=== PATIENT | female | born 1945 | race Caucasian/White ===

== ENCOUNTER 2016-11-16 18:28 | Emergency (ER) | payer OTHER, BC ==
[2016-11-16 18:34] VITALS: BP 159/83; PULSE 63; TEMP 98.5; BMI 34.5
--- NOTE | 2016-11-16 19:02 | PDOC ---
History of Present Illness - General Chief Complaint: Injury Stated Complaint: INJURY Time Seen by Provider: 11/16/16 18:39 History Source: Patient Exam Limitations: No Limitations - History of Present Illness Initial Comments: CHIEF COMPLAINT: 71 y/o afebrile female with PMH HTN, HLD, GERD c/o right wrist and left knee pain s/p trip and fall. HISTORY OF PRESENT ILLNESS: The patient tripped on a package on her steps and fell, hitting her head and landing on her right wrist. She is c/o right wrist pain, left knee pain and large bump to forehead. She also admits to some nausea. The patient denies LOC, neck pain, dizziness, v/d, CP, SOB, abd pain, numbness/tingling in extremities. The patient is ambulatory. Vital signs on arrival are within normal limits. REVIEW OF SYSTEMS: GENERAL/CONSTITUTIONAL: No fever/chills. No weakness. No weight change. HEAD, EYES, EARS, NOSE AND THROAT: No change in vision. No ear pain or discharge. No sore throat. CARDIOVASCULAR: No chest pain or shortness of breath. RESPIRATORY: No cough, wheezing, or hemoptysis. GASTROINTESTINAL: +nausea. No abd pain, vomiting, diarrhea. GENITOURINARY: No dysuria, frequency, or change in urination. MUSCULOSKELETAL: +right wrist pain and left knee pain. No neck or back pain. SKIN: +large bump to forehead NEUROLOGIC: No headache, vertigo, loss of consciousness, or loss of sensation. PHYSICAL EXAM: GENERAL: The patient is awake, alert, and fully oriented, in no acute distress. She is ambulatory. HEAD: 5cm hematoma that is TTP and ecchymotic to right forehead, just superior to right eye. ENT: Pupils equal, round and reactive to light, extraocular movements intact, sclera anicteric, conjunctiva clear. Neck supple. No midline cervical spine TTP or step offs. +ptosis of right eye. No proptosis. No hemotympanum b/l. LUNGS: Clear to auscultation bilaterally. Normal excursion. No respiratory distress or use of accessory muscles. CV: RRR, S1/S2, no MRG. Cap refill < 2 sec. ABDOMEN: Soft, non-distended, non-tender even to deep palpation, no hepatomegaly or splenomegaly, no masses. EXTREMITIES: Obvious deformity with significant edema to distal right forearm with TTP of distal right forearm. decreased ROM secondary to pain and deformity. TTP of medial left knee joint line with minimal swelling. NEUROLOGICAL: Normal speech, normal gait. CN II-XII grossly intact. PSYCH: Normal mood, normal affect. SKIN: Warm, dry, normal turgor, no rashes or lesions noted. Past History - Past Medical History Allergies/Adverse Reactions: Allergies Allergy/AdvReac Type Severity Reaction Status Date / Time No Known Allergies Allergy Verified 11/16/16 18:30 Home Medications: Ambulatory Orders Alendronate Na [Fosamax (Weekly)] 70 mg PO Q7D 08/31/13 Atorvastatin Ca [Lipitor] 20 mg PO HS 08/31/13 Calcium 250Mg/Vit-D 125 Units [Oscal 250 mg+D -] 500 mg PO DAILY 08/31/13 Furosemide [Lasix -] 20 mg PO DAILY 08/31/13 Metoprolol Succinate [Toprol XL -] 100 mg PO DAILY 08/31/13 Polyethylene Glycol 3350 [Miralax 255 gm Btl -] 17 gm PO DAILY 08/31/13 Ranitidine [Zantac -] 150 mg PO TID 08/31/13 Psyllium Husk (with Sugar) [Metamucil Packet] 1 each PO BID #0 packet 09/03/13 Sennosides/Docusate Sodium [Lexi-Colace Tablet] 2 each PO UTDICT #0 tablet 09/03 Oxycodone HCl/Acetaminophen [Percocet 5-325 mg Tablet] 1 tab PO Q6H #8 tablet MDD 4 11/17/16 Anemia: No Asthma: No Cancer: No (L BREAST) Cardiac Disorders: No CVA: No COPD: No CHF: No Dementia: No Diabetes: No GI Disorders: Yes (CONSTIPATION,GERD,GASTRITIS,HEMORRHOIDS,HIATAL HERNIA) Disorders: No HTN: Yes Hypercholesterolemia: Yes Liver Disease: Yes (FATTY LIVER) Suicide Attempt (Hx): No Seizures: No Thyroid Disease: No - Surgical History Abdominal Surgery: No Appendectomy: Yes Cardiac Surgery: No Cholecystectomy: No Lung Surgery: No Neurologic Surgery: No Orthopedic Surgery: No - Immunization History Immunization Up to Date: Yes - Psycho/Social/Smoking Cessation Hx Anxiety: No Suicidal Ideation: No Smoking Status: No Smoking History: Never smoked Have you smoked in the past 12 months: No Number of Cigarettes Smoked Daily: 0 Information on smoking cessation initiated: No Hx Alcohol Use: No Drug/Substance Use Hx: No Substance Use Type: None Hx Substance Use Treatment: No *Physical Exam - Vital Signs Last Vital Signs Temp Pulse Resp BP Pulse Ox 98.5 F 63 20 159/83 96 11/16/16 18:31 11/16/16 18:31 11/16/16 18:31 11/16/16 18:31 11/16/16 18:31 Procedures - Splinting Splint Location: Right: Wrist Pre-Proc Neuro Vasc Exam: normal Hand-Made Type: orthoglass Splint Type: Yes: Volar Eugenio Bandage: 3" (2) ED Treatment Course - RADIOLOGY Radiology Studies Ordered: Category Date Time Status HEAD CT WITHOUT CONTRAST [CT] Stat CT Scan 11/16/16 18:56 Ordered KNEE 2 POS-LEFT [RAD] Stat Radiology 11/16/16 18:56 Ordered Medical Decision Making - Medical Decision Making A/P: 71 y/o afebrile female with right distal forearm fracture, left knee pain and large hematoma to head s/p trip and fall at home. Plan is as follows: 1. Head CT 2. Xray right wrist 3. Xray left knee head CT IMPRESSION: No CT evidence of acute intracranial pathology. xray right wrist IMPRESSION: Acute intra-articular fracture distal metaphysis right radius extending to radial styloid and radiocarpal joint. Swelling dorsal wrist soft tissues. xray left knee IMPRESSION: No acute fracture or dislocation. No radiopaque foreign body. Swelling prepatellar soft tissues. SPoke with JEROME Faria for Dr. Jones and she states to put the wrist in a volar splint and have her f/u this week in the office. Gave pt PO percocet prior to splinting. Splinted her wrist without difficulty. Will d/c to home with rx for percocet - i informed her it may cause drowsiness. Instructed her to call Dr. Jones's office tomorrow morning to schedule follow up appointment. The patient verbalizes understanding of all instructions, has no further questions and is awaiting discharge. *DC/Admit/Observation/Transfer Diagnosis at time of Disposition: Radial styloid fracture Qualifiers: Encounter type: initial encounter Fracture type: closed Laterality: right - Discharge Dispostion Disposition: HOME Condition at time of disposition: Improved - Prescriptions Prescriptions: Oxycodone HCl/Acetaminophen [Percocet 5-325 mg Tablet] 1 tab PO Q6H #8 tablet MDD 4 - Referrals Referrals: Steve Cifuentes MD [Primary Care Provider] - Faizan Jones MD [Staff Physician] - Call tomorrow - Patient Instructions Printed Discharge Instructions: DI for Distal Radius Fracture Additional Instructions: Discharge Instructions: -Take Percocet for pain as prescribed; may cause drowsiness -Call Dr. Jones tomorrow morning to schedule follow up appointment for as soon as possible
[2016-11-16] MEDS ORDERED: OXYCODONE/APAP 5/325MG COMBO TABLET ONE (23:28)
== END 2016-11-17 00:22 | disposition home or self-care (01) ==
LOC: JER 18:28
PROC: 2W3EX1Z Immobilization of Right Hand using Splint (ICD-10-PCS; principal; 2016-11-16)
DX: S52.511A Displaced fracture of right radial styloid process, initial encounter for closed fracture (principal); W18.30XA Fall on same level, unspecified, initial encounter; Y93.89 Activity, other specified; Y92.008 Other place in unspecified non-institutional (private) residence as the place of occurrence of the external cause; I10 Essential (primary) hypertension; E78.5 Hyperlipidemia, unspecified; K21.9 Gastro-esophageal reflux disease without esophagitis; K76.0 Fatty (change of) liver, not elsewhere classified; K59.00 Constipation, unspecified
CPT/HCPCS: 29125; 70450-TC; 73110-TC-RT; 73130-TC-RT; 73560-TC-LT; 99283-25

== ENCOUNTER 2021-01-23 08:06 | Emergency (ER) | payer BC, OTHER ==
[2021-01-23 08:14] VITALS: BP 169/86; PULSE 66; TEMP 98.8; BMI 34.4
== END 2021-01-23 13:11 | disposition home or self-care (01) ==
LOC: JER 08:06
DX: K59.00 Constipation, unspecified (principal)
CPT/HCPCS: 74018-TC-FY; 99283-25

== ENCOUNTER 2024-04-28 14:08 | Emergency (ER) | payer OTHER ==
[2024-04-28 14:18] VITALS: BP 138/66; PULSE 72; RESP 18; TEMP 98.6; BMI 33.2
[2024-04-28 15:12] LABS: HEMATOCRIT 42.2 % (32.4-45.2); HEMOGLOBIN 13.6 G/dL (10.7-15.3); MCH 27.6 pg (25.7-33.7); MCHC 32.1 g/dl (32.0-36.0); MEAN PLT VOLUME 8.9 fl (7.5-11.1); PLATELET COUNT 318.4 10^3/uL (134-434); RBC 4.91 10^6/uL (3.60-5.2); RDW 14.6 % (11.6-15.6); WHITE BLOOD COUNT 11.9 10^3/uL (4.0-10.8)
[2024-04-28 15:15] LABS: INR 1.14 (0.83-1.09)
[2024-04-28 15:17] LABS: ACTIVATED PTT 31.3 SECONDS (25.2-36.5)
[2024-04-28 15:21] LABS: PLATELET ESTIMATE ADEQUATE
[2024-04-28 15:22] LABS: ALBUMIN 4.4 g/dl (3.4-5.0); BILIRUBIN,TOTAL 0.5 mg/dl (0.2-1); CALCIUM 9.4 mg/dl (8.5-10.1); CREATININE 0.8 mg/dl (0.6-1.3); MAGNESIUM 1.7 mg/dL (1.8-2.4); POTASSIUM 3.2 mmol/L (3.5-5.1); TOT PROT 6.7 g/dl (6.4-8.2)
[2024-04-28] MEDS ORDERED: ACETAMINOPHEN 500 MG TABLET (FP) ONE (15:23)
[2024-04-28] MEDS ORDERED: PANTOPRAZOLE 40 MG TABLET PO ONE (15:23)
[2024-04-28] MEDS: PANTOPRAZOLE 40 MG TABLET PO ONE (15:29)
[2024-04-28] MEDS: ACETAMINOPHEN 500 MG TABLET (FP) PO ONE (15:29)
[2024-04-28] MEDS ORDERED: POTASSIUM CHLORIDE ORAL LIQUID 20 MEQ/15 ML ONE (15:46)
[2024-04-28] MEDS: MAGNESIUM OXIDE 400 MG TABLET (FP) PO ONE (15:50)
[2024-04-28] MEDS: POTASSIUM CHLORIDE ORAL LIQUID 20 MEQ/15 ML PO ONE (15:50)
== END 2024-04-28 16:05 | disposition home or self-care (01) ==
LOC: FER 14:08
DX: R19.5 Other fecal abnormalities (principal); R74.01 Elevation of levels of liver transaminase levels; R79.82 Elevated C-reactive protein (CRP)
CPT/HCPCS: 36415; 80053; 82272; 83735; 85027; 85610; 85730; 99283-25

== ENCOUNTER 2024-07-13 19:53 | Inpatient (IN) | payer OTHER ==
[2024-07-13] MEDS ORDERED: ACETAMINOPHEN INJECTION 100 ML ONE (20:58)
[2024-07-13] MEDS ORDERED: MAG HYDROX/AL HYDROX/SIMETH 30 ML UNIT-DOSE CUP ONE (20:58)
[2024-07-13 22:11] LABS: BASO % 0.4 % (0-2.0); EOS % 0.5 % (0-4.5); HEMATOCRIT 39.1 % (32.4-45.2); HEMOGLOBIN 13.2 GM/dL (10.7-15.3); LYMPH % 14.2 % (8-40); MCH 29.1 pg (25.7-33.7); MCHC 33.8 g/dl (32.0-36.0); MEAN CELL VOLUME 86.2 fl (80-96); MEAN PLT VOLUME 8.4 fl (7.5-11.1); MONO % 4.8 % (3.8-10.2); NEUT % 80.1 % (42.8-82.8); PLATELET COUNT 227 10^3/uL (134-434); RBC 4.54 M/mm3 (3.60-5.2); RDW 14.1 % (11.6-15.6); WHITE BLOOD COUNT 9.4 K/mm3 (4.0-10.0)
[2024-07-13] MEDS: FAMOTIDINE 20 MG/50 ML IVPB 20 MG/50 ML MG IVPB ONE (22:19)
[2024-07-13] MEDS: MAG HYDROX/AL HYDROX/SIMETH 30 ML UNIT-DOSE CUP PO ONE (22:19)
[2024-07-13] MEDS: SODIUM CHLORIDE 1,000 ML IV STA (22:19)
[2024-07-13] MEDS: ACETAMINOPHEN 1000 MG/100 ML BAG IVPB ONE (22:19)
[2024-07-13 22:35] LABS: POTASSIUM 3.5 mmol/L (3.5-5.1)
[2024-07-13 22:37] LABS: ALBUMIN 3.8 g/dl (3.4-5.0); CALCIUM 8.8 mg/dL (8.5-10.1)
[2024-07-13 22:38] LABS: BLOOD UREA NITROGEN 14.6 mg/dL (7-18)
[2024-07-13 22:41] LABS: CREATININE 0.6 mg/dL (0.55-1.3)
[2024-07-13 22:42] LABS: BILIRUBIN,TOTAL 0.6 mg/dL (0.2-1); TOT PROT 6.4 g/dl (6.4-8.2)
[2024-07-13] MEDS: morphine CARPU-JECT 4 MG/1 ML DISP.SYRIN IVPUSH ONE (23:24)
[2024-07-13] MEDS ORDERED: morphine SULFATE 4 MG/ML VIAL ONE (23:26)
[2024-07-14] MEDS ORDERED: ACETAMINOPHEN INJECTION 100 ML ONE (03:57)
[2024-07-14] MEDS: LACTATED RINGERS SOLUTION 1,000 ML/1,000 ML INFUS.BAG IV SCH (04:04)
[2024-07-14] MEDS: ACETAMINOPHEN 1000 MG/100 ML BAG IVPB SCH (04:04)
[2024-07-14 09:21] LABS: HEMOGLOBIN 12.8 GM/dL (10.7-15.3); MCH 29.2 pg (25.7-33.7); MCHC 33.8 g/dl (32.0-36.0); MEAN CELL VOLUME 86.4 fl (80-96); MEAN PLT VOLUME 8.5 fl (7.5-11.1); PLATELET COUNT 194 10^3/uL (134-434); RDW 13.9 % (11.6-15.6); WHITE BLOOD COUNT 8.4 K/mm3 (4.0-10.0)
[2024-07-14] MEDS: LOSARTAN POTASSIUM 50 MG TABLET PO SCH ×2 (09:24→10:49)
[2024-07-14] MEDS: ENOXAPARIN NA (PORCINE) 40 MG/0.4 ML DISP.SYRIN SQ SCH (09:25)
[2024-07-14] MEDS: HYDROCHLOROTHIAZIDE 25 MG TABLET (FP) PO ONE (09:25)
[2024-07-14] MEDS: ACETAMINOPHEN 1000 MG/100 ML BAG IVPB PRN (09:25)
[2024-07-14 09:30] LABS: POTASSIUM 3.2 mmol/L (3.5-5.1)
[2024-07-14 09:36] LABS: ALBUMIN 3.3 g/dl (3.4-5.0); BLOOD UREA NITROGEN 11.8 mg/dL (7-18); CALCIUM 8.3 mg/dL (8.5-10.1)
[2024-07-14 09:37] LABS: MAGNESIUM 1.8 mg/dL (1.8-2.4)
[2024-07-14 09:39] LABS: PHOSPHOROUS 3.3 mg/dL (2.5-4.9)
[2024-07-14 09:40] LABS: CREATININE 0.7 mg/dL (0.55-1.3)
[2024-07-14 09:41] LABS: BILIRUBIN,TOTAL 0.5 mg/dL (0.2-1); TOT PROT 5.6 g/dl (6.4-8.2)
[2024-07-14] MEDS ORDERED: HYDROCHLOROTHIAZIDE 25 MG TABLET (FP) PO SCH (10:00)
[2024-07-14] MEDS: DULoxetine HCL 20 MG CAPSULE.DR PO ONE (10:49)
[2024-07-14] MEDS: PATIENT'S OWN MEDICATION (NON-FORMULARY) (Raloxifene Hcl [Raloxifene Hcl] 60 MG Tablet) PO SCH (10:49)
[2024-07-14] MEDS: morphine SULFATE 4 MG/ML VIAL IVPUSH PRN (13:09)
[2024-07-14] MEDS ORDERED: ALPRAZolam 1 MG TABLET PO PRN (16:33)
[2024-07-15] MEDS: ACETAMINOPHEN 1000 MG/100 ML BAG IVPB PRN (08:45)
[2024-07-15] MEDS: ALPRAZolam 1 MG TABLET PO PRN (08:52)
[2024-07-15 11:27] LABS: BASO % 0.3 % (0-2.0); EOS % 0.8 % (0-4.5); HEMATOCRIT 35.2 % (32.4-45.2); HEMOGLOBIN 11.9 GM/dL (10.7-15.3); LYMPH % 10.7 % (8-40); MCH 28.8 pg (25.7-33.7); MCHC 33.8 g/dl (32.0-36.0); MEAN CELL VOLUME 85.1 fl (80-96); MEAN PLT VOLUME 8.2 fl (7.5-11.1); MONO % 6.3 % (3.8-10.2); NEUT % 81.9 % (42.8-82.8); PLATELET COUNT 224 10^3/uL (134-434); RBC 4.14 M/mm3 (3.60-5.2); RDW 13.8 % (11.6-15.6); WHITE BLOOD COUNT 11.9 K/mm3 (4.0-10.0)
[2024-07-15 11:38] LABS: INR 1.19 (0.83-1.09); PROTHROMBIN TIME (PATIENT) 13.4 SEC (9.7-13.0)
[2024-07-15 12:05] LABS: BLOOD UREA NITROGEN 10.4 mg/dL (7-18)
[2024-07-15 12:08] LABS: CREATININE 0.6 mg/dL (0.55-1.3)
[2024-07-15 12:09] LABS: BILIRUBIN,TOTAL 0.6 mg/dL (0.2-1)
[2024-07-15 12:10] LABS: TOT PROT 5.2 g/dl (6.4-8.2)
[2024-07-15] MEDS: KCL 10 MEQ IVPB 10 MEQ/100 ML INFUS.BAG IVPB SCH (16:14)
[2024-07-15] MEDS: PHYTONADIONE 10 MG/1 ML AMP IVPB ONE (16:25)
[2024-07-15] MEDS: AMPICILLIN NA/SULBACTAM NA 3 GM in SODIUM CHLORIDE 100 ML IVPB SCH (17:24)
[2024-07-15] MEDS: POTASSIUM CHLORIDE ORAL LIQUID 20 MEQ/15 ML PO ONE (17:24)
[2024-07-15] MEDS: POTASSIUM CHLORIDE 10 MEQ in SODIUM CHLORIDE 1,000 ML IV SCH (19:05)
[2024-07-16] MEDS ORDERED: AMPICILLIN NA/SULBACTAM NA 3 GM VIAL ONE (09:32)
[2024-07-16 10:32] LABS: INR 1.04 (0.83-1.09)
[2024-07-16 11:09] LABS: POTASSIUM 3.6 mmol/L (3.5-5.1)
[2024-07-16 11:11] LABS: CALCIUM 8.4 mg/dL (8.5-10.1)
[2024-07-16 11:12] LABS: ALBUMIN 3.2 g/dl (3.4-5.0); BLOOD UREA NITROGEN 8.8 mg/dL (7-18)
[2024-07-16 11:15] LABS: CREATININE 0.5 mg/dL (0.55-1.3)
[2024-07-16 11:16] LABS: BILIRUBIN,TOTAL 0.6 mg/dL (0.2-1); TOT PROT 5.8 g/dl (6.4-8.2)
[2024-07-16 12:42] VITALS: BMI 35.4
[2024-07-16 12:42] LABS: BASO % 0.1 % (0-2.0); EOS % 1.2 % (0-4.5); HEMATOCRIT 33.3 % (32.4-45.2); HEMOGLOBIN 11.2 GM/dL (10.7-15.3); LYMPH % 8.7 % (8-40); MCH 29.1 pg (25.7-33.7); MCHC 33.7 g/dl (32.0-36.0); MEAN CELL VOLUME 86.3 fl (80-96); MEAN PLT VOLUME 8.3 fl (7.5-11.1); MONO % 6.7 % (3.8-10.2); NEUT % 83.3 % (42.8-82.8); PLATELET COUNT 218 10^3/uL (134-434); RBC 3.86 M/mm3 (3.60-5.2); RDW 13.6 % (11.6-15.6); WHITE BLOOD COUNT 12.9 K/mm3 (4.0-10.0)
[2024-07-17] MEDS ORDERED: ACETAMINOPHEN INJECTION 100 ML ONE (11:02)
[2024-07-17] MEDS ORDERED: CEFAZOLIN SODIUM 2 GM VIAL ONE (11:03)
[2024-07-17] MEDS ORDERED: MIDAZOLAM HCL 2 MG/2 ML SINGLE DOSE VIAL ONE (11:04)
[2024-07-17] MEDS ORDERED: ALBUTEROL SO4 0.083% IH SOL 2.5 MG/3 ML VIAL.NEB. NEB ONE (12:32)
[2024-07-17] MEDS ORDERED: IPRATROPIUM BR 0.02% 0.5 MG/2.5 ML VIAL.NEB. NEB ONE (12:57)
[2024-07-17] MEDS: ALBUTEROL SO4 2.5/IPRATROPIUM 0.5 INH SOL 3 ML VIAL.NEB. NEB ONE (12:58)
[2024-07-18] MEDS ORDERED: BUPIVACAINE HCL/PF 0.25% (2.5MG/ML) 10 ML VIAL ONE (09:46)
[2024-07-18] MEDS ORDERED: ROCURONIUM BROMIDE 50 MG/5 ML SYRINGE ONE (10:58)
[2024-07-18] MEDS ORDERED: PROPOFOL 20 ML ONE ×2 (10:58→13:44)
[2024-07-18] MEDS ORDERED: SUCCINYLCHOLINE CHLORIDE 200 MG/10 ML SYRINGE ONE (10:59)
[2024-07-18] MEDS ORDERED: SUGAMMADEX SODIUM 200 MG/2 ML VIAL ONE (10:59)
[2024-07-18] MEDS ORDERED: ETOMIDATE 20 MG/10 ML VIAL IVPUSH ONE (11:19)
[2024-07-18] MEDS ORDERED: cefOXitin SODIUM 2 GM VIAL (RESTRICTED TO ID) IVPB ONE (11:59)
[2024-07-18] MEDS: cefOXitin SODIUM 2 GM VIAL (RESTRICTED TO ID) IVPB ONE (12:00)
[2024-07-18] MEDS: BUPIVACAINE HCL/PF 0.25% (2.5MG/ML) 10 ML VIAL IJ ONE (12:13)
[2024-07-18] MEDS ORDERED: ONDANSETRON 4 MG/2 ML VIAL ONE (13:23)
[2024-07-18] MEDS ORDERED: LIDOCAINE HCL/PF 2% SDV 5ML VIAL ONE (13:46)
[2024-07-18] MEDS ORDERED: oxyCODONE HCL 5 MG TABLET PO PRN ×2 (14:07→14:53)
[2024-07-18] MEDS ORDERED: LACTATED RINGERS SOLUTION 1,000 ML IV SCH (14:15)
[2024-07-18] MEDS: ACETAMINOPHEN 1000 MG/100 ML BAG IVPB SCH (14:57)
[2024-07-18 15:23] VITALS: RESP 18
[2024-07-18] MEDS: DOCUSATE SODIUM 100 MG CAPSULE (FP) PO SCH (22:29)
[2024-07-18] MEDS: POTASSIUM CHLORIDE 10 MEQ in SODIUM CHLORIDE 1,000 ML IV SCH (22:38)
[2024-07-19 09:30] LABS: POTASSIUM 4.1 mmol/L (3.5-5.1)
[2024-07-19 09:35] LABS: ALBUMIN 2.8 g/dl (3.4-5.0); CALCIUM 8.2 mg/dL (8.5-10.1)
[2024-07-19 09:36] LABS: BLOOD UREA NITROGEN 16.8 mg/dL (7-18)
[2024-07-19 09:38] LABS: CREATININE 0.6 mg/dL (0.55-1.3)
[2024-07-19 09:39] LABS: BILIRUBIN,TOTAL 0.8 mg/dL (0.2-1); TOT PROT 5.4 g/dl (6.4-8.2)
[2024-07-19] MEDS: LOSARTAN POTASSIUM 50 MG TABLET PO SCH (09:42)
[2024-07-19] MEDS: ENOXAPARIN NA (PORCINE) 40 MG/0.4 ML DISP.SYRIN SQ SCH (09:42)
[2024-07-19] MEDS: PATIENT'S OWN MEDICATION (NON-FORMULARY) (Raloxifene Hcl [Raloxifene Hcl] 60 MG) PO SCH (09:43)
[2024-07-19 12:26] LABS: BASO % 0.5 % (0-2.0); EOS % 2.1 % (0-4.5); HEMATOCRIT 33.6 % (32.4-45.2); HEMOGLOBIN 11.1 GM/dL (10.7-15.3); MCH 28.9 pg (25.7-33.7); MCHC 33.1 g/dl (32.0-36.0); MEAN CELL VOLUME 87.1 fl (80-96); MEAN PLT VOLUME 8.3 fl (7.5-11.1); MONO % 8.5 % (3.8-10.2); NEUT % 80.9 % (42.8-82.8); PLATELET COUNT 349 10^3/uL (134-434); RBC 3.86 M/mm3 (3.60-5.2); RDW 13.9 % (11.6-15.6); WHITE BLOOD COUNT 10.8 K/mm3 (4.0-10.0)
[2024-07-19] MEDS ORDERED: ACETAMINOPHEN 500 MG TABLET (FP) PO PRN (14:30)
[2024-07-19] MEDS: oxyCODONE HCL 5 MG TABLET PO PRN (17:00)
[2024-07-20 09:59] LABS: POTASSIUM 3.7 mmol/L (3.5-5.1)
[2024-07-20 10:15] LABS: CALCIUM 8.2 mg/dL (8.5-10.1)
[2024-07-20 10:16] LABS: ALBUMIN 2.6 g/dl (3.4-5.0); BLOOD UREA NITROGEN 8.6 mg/dL (7-18)
[2024-07-20 10:19] LABS: CREATININE 0.5 mg/dL (0.55-1.3)
[2024-07-20 10:21] LABS: BILIRUBIN,TOTAL 0.6 mg/dL (0.2-1); TOT PROT 5.2 g/dl (6.4-8.2)
[2024-07-20 14:34] VITALS: BP 146/74; PULSE 86; TEMP 98.8
== END 2024-07-20 16:24 | disposition home or self-care (01) | DRG 418 ==
LOC: JER 19:53 → JERBED 07-14 00:42 → J5S 07-14 05:12 → J6W 07-18 10:53 → J2C 07-18 11:02 → J8W 07-18 16:06
PROVIDERS: ADMIT Internal Medicine; ATTEND Family Medicine
PROC: 0F798DZ Dilation of Common Bile Duct with Intraluminal Device, Via Natural or Artificial Opening Endoscopic (ICD-10-PCS; 2024-07-17)
PROC: 0FC98ZZ Extirpation of Matter from Common Bile Duct, Via Natural or Artificial Opening Endoscopic (ICD-10-PCS; 2024-07-17)
PROC: 0FT44ZZ Resection of Gallbladder, Percutaneous Endoscopic Approach (ICD-10-PCS; principal; 2024-07-18 14:00)
DX: K85.10 Biliary acute pancreatitis without necrosis or infection (principal); J98.11 Atelectasis; I10 Essential (primary) hypertension; E78.5 Hyperlipidemia, unspecified; K21.9 Gastro-esophageal reflux disease without esophagitis; K80.50 Calculus of bile duct without cholangitis or cholecystitis without obstruction; F32.A Depression, unspecified; I25.10 Atherosclerotic heart disease of native coronary artery without angina pectoris; K59.00 Constipation, unspecified; F41.9 Anxiety disorder, unspecified; E87.6 Hypokalemia
CPT/HCPCS: 0241U-QW; 36415; 71045-TC-FY; 74177-TC; 74181-TC; 74330-TC; 76705-TC; 80048; 80053; 83036; 83605; 83690; 83735; 84100; 84439; 84443; 84478; 84484; 85025; 85027; 85610; 86140; 86803; 88304-TC; 93005; 93010; 94010; 94640; 94760; 97116-GP; 97161-GP; 99285-25; J0131; Q9967

== ENCOUNTER 2024-09-05 05:00 | Day surgery (SDC) | payer OTHER ==
[2024-08-28 13:22] VITALS: BMI 28.8
[2024-09-05 12:27] VITALS: TEMP 97.9
[2024-09-05 13:35] VITALS: BP 131/58; PULSE 62; RESP 18
== END 2024-09-05 13:47 | disposition home or self-care (01) ==
LOC: JASU-ENDO 05:00
PROVIDERS: ATTEND Internal Medicine Gastroenterology
PROC: 0FPB8DZ Removal of Intraluminal Device from Hepatobiliary Duct, Via Natural or Artificial Opening Endoscopic (ICD-10-PCS; principal; 2024-09-05 10:00)
DX: Z96.89 Presence of other specified functional implants (principal); K80.50 Calculus of bile duct without cholangitis or cholecystitis without obstruction; Z46.89 Encounter for fitting and adjustment of other specified devices
CPT/HCPCS: 76000-TC-FY